=== PATIENT | female | born 1995 | race Caucasian/White ===

== ENCOUNTER 2018-10-02 13:28 | Emergency (ER) | payer OTHER, SELFPAY ==
[2018-10-02 13:54] VITALS: BP 107/65; PULSE 80; RESP 14; TEMP 36.8; O2SAT 100
--- NOTE | 2018-10-02 13:58 | DI.RAD.S_ITS ---
PROCEDURE: XR KNEE LT 3V INDICATIONS: fall, twist and pain in left knee TECHNIQUE: 3 views of the knee were acquired. COMPARISON: None. FINDINGS: Bones: No fractures or dislocations. No suspicious bony lesions. Soft tissues: No joint effusion. No suspicious soft tissue calcifications. IMPRESSION: No acute radiographic findings. If pain persists, consider advanced imaging with CT or MRI. Dictated by: Keesha Laughlin M.D. on 10/02/2018 at 14:44 Approved by: Keesha Laughlin M.D. on 10/02/2018 at 14:44
--- NOTE | 2018-10-02 15:15 | ED.LOWEXIN ---
HPI - Extremity Injury (Lower) <Rivka Rick PA-C - Last Filed: 10/02/18 21:25> General Chief Complaint: Extremity Injury, Lower Stated Complaint: LEFT KNEE INJURY Time Seen by Provider: 10/02/18 14:33 Source: patient Mode of arrival: ambulatory Limitations: no limitations History of Present Illness HPI Narrative: This 23-year-old female states that she was dancing last night when she twisted her knee and fell on it. She is not sure how she landed. She denies any head contusion, LOC, or any other injury. She states that she is able to walk on the knee, but it is painful to walk and it feels a little bit lax. She denies any other complaints today. Denies any possibility of . Related Data Home Medications Medication Instructions Recorded Confirmed No Known Home Medications 10/02/18 10/02/18 Allergies Allergy/AdvReac Type Severity Reaction Status Date / Time Penicillins Allergy Severe Anaphylaxis Verified 10/02/18 13:57 Review of Systems <DORA Nichols Last Filed: 10/02/18 21:25> Review of Systems ROS Unobtainable: All systems reviewed & are unremarkable except as noted in HPI and below Exam <DORA Nichols Last Filed: 10/02/18 21:25> Narrative Exam Narrative: GENERAL APPEARANCE: Patient sitting comfortably, in no distress. LUNGS: Clear to auscultation bilaterally. HEART: Rate and rhythm regular without murmur, normal S1 and S2, no S3 or S4. MUSCULOSKELETAL: Left knee mild effusion, no tenderness to palpation over the soft tissues or joint line. Mildly limited flexion and extension secondary to tenderness. There is no obvious laxity but limited ability to test secondary to tenderness. NEUROVASCULAR: Extremities warm and pink with sensation grossly intact Initial Vital Signs Initial Vital Signs: Vital Signs Temperature 98.3 F 10/02/18 13:54 Pulse Rate 80 10/02/18 13:54 Respiratory Rate 14 10/02/18 13:54 Blood Pressure 107/65 10/02/18 13:54 Pulse Oximetry 100 10/02/18 13:54 <Kwame Yi DO - Last Filed: 10/05/18 07:17> Initial Vital Signs Initial Vital Signs: Vital Signs Temperature 98.3 F 10/02/18 13:54 Pulse Rate 80 10/02/18 13:54 Respiratory Rate 14 10/02/18 13:54 Blood Pressure 107/65 10/02/18 13:54 Pulse Oximetry 100 10/02/18 13:54 Course <Rivka Rick PA-C - Last Filed: 10/02/18 21:25> Orders Ordered: ED Orders 10/02/18 13:58 XR knee LT 3V Stat Vital Signs - 8 hr 10/02/18 13:54 10/02/18 16:06 Temperature 98.3 F Pulse Rate 80 76 Respiratory Rate 14 18 Blood Pressure 107/65 113/74 Pulse Oximetry 100 98 <Kwame Yi DO - Last Filed: 10/05/18 07:17> Orders Ordered: ED Orders 10/02/18 13:58 XR knee LT 3V Stat Vital Signs - 8 hr 10/02/18 13:54 10/02/18 16:06 Temperature 98.3 F Pulse Rate 80 76 Respiratory Rate 14 18 Blood Pressure 107/65 113/74 Pulse Oximetry 100 98 MDM - Extremity Injury (Lower) <DORA Nichols Last Filed: 10/02/18 21:25> Imaging Data knee: Radiologist's impression: [place] [address] XRay Report Signed Patient: KENNY PEREZ#: [id number] : 1995Acct:[id number] Age/Sex: 23 / FDate of Service: 10/02/18 Loc: ED Accession Number: [id number] Procedure: XR knee LT 3V Ordering Provider: Kwame Yi D.O. PROCEDURE: XR KNEE LT 3V INDICATIONS: fall, twist and pain in left knee TECHNIQUE: 3 views of the knee were acquired. COMPARISON: None. FINDINGS: Bones: No fractures or dislocations. No suspicious bony lesions. Soft tissues: No joint effusion. No suspicious soft tissue calcifications. IMPRESSION: No acute radiographic findings. If pain persists, consider advanced imaging with CT or MRI. Dictated by: Keesha Laughlin M.D. on 10/02/2018 at 14:44 Approved by: Keesha Laughlin M.D. on 10/02/2018 at 14:44 Discharge Plan Departure Patient Disposition: Home Clinical Impression: Knee sprain Discharge Date/Time: 10/02/18 16:05 Interventions: ED Discharge Assessment Last Done: 10/02/18 16:06 Instructions: DI for Knee Sprain Activity Restrictions/Additional Instructions: Please wear the knee brace for comfort and stability when you are walking. Take your sagx-dkl-zfbodxq naproxen 2 tabs every 12 hr which is equivalent to a prescription dose to help with pain and inflammation. Gentle walking is okay but avoid uneven surfaces, pivoting, etc. Return if you have acutely worsening symptoms, otherwise follow up with your PCP next week for recheck to determine whether further testing or therapy may be needed. Prescriptions: No Action No Known Home Medications RF: 0 Referrals: [facility] [Provider Group] <Kwame Yi DO - Last Filed: 10/05/18 07:17> [facility] Attestation: I was available for consultation during this patient's emergency department encounter
--- NOTE | 2018-10-02 15:18 | ED_ITS ---
HPI - Extremity Injury (Lower) <Rivka Rick PA-C - Last Filed: 10/02/18 21:25> General Chief Complaint: Extremity Injury, Lower Stated Complaint: LEFT KNEE INJURY Time Seen by Provider: 10/02/18 14:33 Source: patient Mode of arrival: ambulatory Limitations: no limitations History of Present Illness HPI Narrative: This 23-year-old female states that she was dancing last night when she twisted her knee and fell on it. She is not sure how she landed. She denies any head contusion, LOC, or any other injury. She states that she is able to walk on the knee, but it is painful to walk and it feels a little bit lax. She denies any other complaints today. Denies any possibility of . Related Data Home Medications Medication Instructions Recorded Confirmed No Known Home Medications 10/02/18 10/02/18 Allergies Allergy/AdvReac Type Severity Reaction Status Date / Time Penicillins Allergy Severe Anaphylaxis Verified 10/02/18 13:57 Review of Systems <DORA Nichols Last Filed: 10/02/18 21:25> Review of Systems ROS Unobtainable: All systems reviewed & are unremarkable except as noted in HPI and below Exam <DORA Nichols Last Filed: 10/02/18 21:25> Narrative Exam Narrative: GENERAL APPEARANCE: Patient sitting comfortably, in no distress. LUNGS: Clear to auscultation bilaterally. HEART: Rate and rhythm regular without murmur, normal S1 and S2, no S3 or S4. MUSCULOSKELETAL: Left knee mild effusion, no tenderness to palpation over the soft tissues or joint line. Mildly limited flexion and extension secondary to tenderness. There is no obvious laxity but limited ability to test secondary to tenderness. NEUROVASCULAR: Extremities warm and pink with sensation grossly intact Initial Vital Signs Initial Vital Signs: Vital Signs Temperature 98.3 F 10/02/18 13:54 Pulse Rate 80 10/02/18 13:54 Respiratory Rate 14 10/02/18 13:54 Blood Pressure 107/65 10/02/18 13:54 Pulse Oximetry 100 10/02/18 13:54 <Kwame Yi DO - Last Filed: 10/05/18 07:17> Initial Vital Signs Initial Vital Signs: Vital Signs Temperature 98.3 F 10/02/18 13:54 Pulse Rate 80 10/02/18 13:54 Respiratory Rate 14 10/02/18 13:54 Blood Pressure 107/65 10/02/18 13:54 Pulse Oximetry 100 10/02/18 13:54 Course <Rivka Rick PA-C - Last Filed: 10/02/18 21:25> Orders Ordered: ED Orders 10/02/18 13:58 XR knee LT 3V Stat Vital Signs - 8 hr 10/02/18 13:54 10/02/18 16:06 Temperature 98.3 F Pulse Rate 80 76 Respiratory Rate 14 18 Blood Pressure 107/65 113/74 Pulse Oximetry 100 98 <Kwame Yi DO - Last Filed: 10/05/18 07:17> Orders Ordered: ED Orders 10/02/18 13:58 XR knee LT 3V Stat Vital Signs - 8 hr 10/02/18 13:54 10/02/18 16:06 Temperature 98.3 F Pulse Rate 80 76 Respiratory Rate 14 18 Blood Pressure 107/65 113/74 Pulse Oximetry 100 98 MDM - Extremity Injury (Lower) <DORA Nichols Last Filed: 10/02/18 21:25> Imaging Data knee: Radiologist's impression: [place] [address] XRay Report Signed Patient: KENNY PEREZ#: [id number] : 1995Acct:[id number] Age/Sex: 23 / FDate of Service: 10/02/18 Loc: ED Accession Number: [id number] Procedure: XR knee LT 3V Ordering Provider: Kwame Yi D.O. PROCEDURE: XR KNEE LT 3V INDICATIONS: fall, twist and pain in left knee TECHNIQUE: 3 views of the knee were acquired. COMPARISON: None. FINDINGS: Bones: No fractures or dislocations. No suspicious bony lesions. Soft tissues: No joint effusion. No suspicious soft tissue calcifications. IMPRESSION: No acute radiographic findings. If pain persists, consider advanced imaging with CT or MRI. Dictated by: Keesha Laughlin M.D. on 10/02/2018 at 14:44 Approved by: Keesha Laughlin M.D. on 10/02/2018 at 14:44 Discharge Plan Departure Patient Disposition: Home Clinical Impression: Knee sprain Discharge Date/Time: 10/02/18 16:05 Interventions: ED Discharge Assessment Last Done: 10/02/18 16:06 Instructions: DI for Knee Sprain Activity Restrictions/Additional Instructions: Please wear the knee brace for comfort and stability when you are walking. Take your enmd-lst-mduwlww naproxen 2 tabs every 12 hr which is equivalent to a prescription dose to help with pain and inflammation. Gentle walking is okay but avoid uneven surfaces, pivoting, etc. Return if you have acutely worsening symptoms, otherwise follow up with your PCP next week for recheck to determine whether further testing or therapy may be needed. Prescriptions: No Action No Known Home Medications RF: 0 Referrals: [facility] [Provider Group] <Kwame Yi DO - Last Filed: 10/05/18 07:17> [facility] Attestation: I was available for consultation during this patient's emergency department encounter
[2018-10-02 16:06] VITALS: BP 113/74; PULSE 76; RESP 18; O2SAT 98
== END 2018-10-02 16:05 | disposition home or self-care (01) ==
PROVIDERS: Emergency Provider Internal Medicine
DX: S83.92XA Sprain of unspecified site of left knee, initial encounter (principal); W18.30XA Fall on same level, unspecified, initial encounter
CPT/HCPCS: 73562; 99283

== ENCOUNTER → 2019-09-27 10:28 | Outpatient (CLI) | payer OTHER, SELFPAY ==
[2019-09-28 12:44] LABS: Strep Grp B PCR NEG for Grp B Strep
== END ==
PROVIDERS: Visit Provider Obstetrics & Gynecology
DX: Z34.03 Encounter for supervision of normal first pregnancy, third trimester (principal)
CPT/HCPCS: 87653

== ENCOUNTER 2019-10-07 11:41 | Outpatient (CLI) | payer OTHER, SELFPAY ==
--- NOTE | 2019-10-07 | DI.US.S_ITS ---
PROCEDURE: US OB BIOPHYSICAL PROFILE INDICATIONS: DECREASED MOVEMENT OUTSIDE/PRIOR DATING DATA: Last menstrual period (LMP): 01/12/19. LMP-based estimated date of delivery (ROBERT): 10/19/19. TECHNIQUE: Real-time scanning was performed of the fetus for biophysical profile, with image documentation. Color and pulse Doppler interrogation was also performed of the umbilical artery near its insertion into the placenta. COMPARISON: None. FINDINGS: General: A single live intrauterine gestation is present. Presentation: Vertex. Placenta: Placental position is fundal, without previa. Amniotic fluid index: 18.4 cm, normal range is 5-24 cm. heart rate: 136 beats per minute. Maternal cervical canal: Not seen. Estimated gestational age by LMP: 38 weeks 2 days. Biophysical profile: Tone: 2 points. Movement: 2 points. Respiration: 2 points. Largest pocket of fluid: 2 points. (Largest pocket, 6.4 cm) IMPRESSION: Normal biophysical profile, 8/8 points. Dictated by: Mahesh Ball M.D. on 10/07/2019 at 12:16 Approved by: Mahesh Ball M.D. on 10/07/2019 at 12:17
--- NOTE | 2019-10-07 13:21 | P.TNLD_ITS ---
Visit Information Visit Information Date of evaluation: 10/07/19 Primary OB Provider: Kiersten Cox Reason for Evaluation: Yes non-stress test Comments/Additional reasons for admission: This patient is a 24yo @38+5 presenting for evaluation for decreased movement this AM, now feeling normal movement. She denies VB or LOF, reports rare contractions, and reports musculoskeletal low back pain with walking or rolling over in bed. She has had an otherwise uncomplicated , and denies any other complaints obstetrical or otherwise. 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 special praveen needs: No Smoking Status: Former smoker Review of Systems Constitutional Constitutional: Reports system reviewed and no additional complaints, except as documented Gastrointestinal Gastrointestinal: Reports system reviewed and no additional complaints, except as documented Genitourinary Genitourinary: Reports system reviewed and no additional complaints, except as documented Musculoskeletal Musculoskeletal: Reports as per HPI Exam Vital Signs (past 8 hours): 111/68, HR 78 Const General: cooperative, healthy appearing and comfortable GI Palpation: soft and No tender Evaluation Evaluation Baseline heart rate: 115 Variability: Average (6-10) monitor accelerations: Present monitor decelerations: Absent Category of Tracing: I Diagnosis, Plan/Disposition Plan/Disposition Plan: This patient presented for decreased movement which has now resolved, and has had a 10/10 BPP per verbal report from ultrasound staff. She was counselled on precautions for return and management of musculoskeletal pain in , and will keep her scheduled clinic appointment. OB Disposition: home
== END 2019-10-07 13:22 | disposition home or self-care (01) ==
LOC: LABOR 11:51 → OB 10-10 14:25
PROVIDERS: Visit Provider Obstetrics & Gynecology
DX: O36.8130 Decreased fetal movements, third trimester, not applicable or unspecified (principal); Z3A.38 38 weeks gestation of pregnancy
CPT/HCPCS: 59025; 76819; G0378; G0379

== ENCOUNTER 2019-10-19 10:43 | Observation (INO) | payer OTHER, SELFPAY ==
--- NOTE | 2019-10-19 13:20 | P.TNLD_ITS ---
Visit Information Visit Information Date of evaluation: 10/19/19 Primary OB Provider: Kiersten Cox Reason for Evaluation: Yes non-stress test Vital Signs Vital Signs: 115/76, P86, 36.3C PFSH Medical History Healthy female adult (Chronic) Migraines (Chronic ~2011) Vertigo (Inactive) Surgical History No pertinent past surgical history (Chronic) Family History Sister SVT (supraventricular tachycardia) Grandfather Type 2 diabetes mellitus Hypertension Hyperlipidemia Grandfather Lung cancer Father Addiction Mental health problem Grandmother Vertigo Other Family history non-contributory Social History marital status: household members: spouse pets and animals: Yes (X 2 cats and aware) education level: college (some college) 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 Moderate variability with accels, highly reactive, copious movement on prolonged monitoring. Antepartum precautions discussed. OB Disposition: home
== END 2019-10-19 13:30 | disposition home or self-care (01) ==
PROVIDERS: Admitting Provider Obstetrics & Gynecology; Referring Provider Obstetrics & Gynecology; Visit Provider Obstetrics & Gynecology
DX: O48.0 Post-term pregnancy (principal); Z3A.40 40 weeks gestation of pregnancy
CPT/HCPCS: 59025; 59050; G0378; G0379

== ENCOUNTER 2019-10-21 08:45 | Outpatient (CLI) | payer OTHER, SELFPAY ==
--- NOTE | 2019-10-21 13:29 | P.TNLD_ITS ---
Visit Information Visit Information Date of evaluation: 10/21/19 Primary OB Provider: Kiersten Cox Reason for Evaluation: Yes non-stress test Comments/Additional reasons for admission: Patient is a 24yo @40+2 pre senting for postdates testing, with intermittently painful contractions q2, -VB, -LOF, +FM, no other complaints. 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 After discussion, she is concerned about the risk of stillbirth and would like to be induced for postdates. Precautions were discussed, and the patient will return this evening for vaginal cytotec unless she labors spontaneously. OB Disposition: home
--- NOTE | 2019-10-21 18:30 | P.HPOB_ITS ---
OB HPI Date/Time Date of admission: 10/21/19 Date Patient Seen: 10/21/19 Time Patient Seen: 18:32 History of Present Condition Chief complaint: Observation : 1 Para: 0 Estimated Date of Delivery: 10/19/19 Estimated Gestational Age (weeks): 40 Narrative: Opal Hurtado is a 24 year old at 40 weeks 2 days dated by first-trimester ultrasound, presenting for induction of labor for post dates in the setting of latent labor. The patient reports intermittently painful contractions, denies vaginal bleeding or loss of fluid, endorses good movement, denies any other complaints. Patient's was complicated by late transfer of care from the [facility], but has otherwise been uncomplicated. Patient has no contributory medical, surgical, or family history. Patient initially desired tubal ligation, but it was discussed in the setting of the patient's desire for large family, young age, risk of regret, an unfamiliar D with the reality is of adoption IVF that this will not be performed. Indications Indication for induction OB: post dates History of Present care: good care Dating criteria: LMP confirmed by 1st trimester US Ultrasounds: normal 1st trimester US and normal mid trimester US Obstetrical complications: none Medical complications: none Preadmission Labs Blood type: A (-) negative -: Antibody screen: negative, Cystic fibrosis screen: negative, GBS status: negative, HBsAG: negative, HIV: negative and RPR/VDLR: negative -: Chlamydia screen: not detected and Gonorrhea screen: not detected -: Rubella: immune and Varicella: not immune HCAB: negative Integrated screen: Negative Evaluation Evaluation Baseline heart rate: 120 Variability: Average (6-10) monitor accelerations: Present monitor decelerations: Absent Contraction Frequency (minutes): 3 Uterine Contraction Intensity: Mild Category of Tracing: I Comments: 0/50/-1 5 hrs ago PFSH Medical History Healthy female adult (Chronic) Migraines (Chronic ~2011) Vertigo (Inactive) Surgical History No pertinent past surgical history (Chronic) Family History Sister SVT (supraventricular tachycardia) Grandfather Type 2 diabetes mellitus Hypertension Hyperlipidemia Grandfather Lung cancer Father Addiction Mental health problem Grandmother Vertigo Other Family history non-contributory Social History marital status: household members: spouse pets and animals: Yes (X 2 cats and aware) education level: college (some college) 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 special praveen needs: No Smoking Status: Former smoker Meds Home Medications and Allergies Home Medications Medication Instructions Recorded Confirmed Type prenat.vits,carley,hcr-bkxx-wgyut 1 tab PO DAILY 08/30/19 10/19/19 History Allergies Allergy/AdvReac Type Severity Reaction Status Date / Time Penicillins Allergy Severe Anaphylaxis Verified 08/30/19 10:12 Review of Systems Constitutional Constitutional: Reports system reviewed and no additional complaints, except as documented Cardiovascular Cardiovascular: Reports system reviewed; no additional complaints, except as documented Respiratory Respiratory: Reports system reviewed and no additional complaints, except as documented Gastrointestinal Gastrointestinal: Reports as per HPI Genitourinary Genitourinary: Reports as per HPI Musculoskeletal Musculoskeletal: Reports system reviewed; no additional complaints, except as documented Exam Vital Signs (past 8 hours): 112/75, 98 Const General: cooperative, healthy appearing and comfortable Resp Effort & Inspection: normal respiratory effort Auscultation: clear to auscultation bilaterally Cardio Rate: regular rate Rhythm: regular rhythm GI Palpation: soft and No tender External Female Exam: external appearance normal Skin General: no rashes or lesions noted Assessment and Plan Assessment and Plan Assessment and Plan narrative: Patient admitted for induction of labor in the setting of latent labor and postdates. Reassuring status and patient's status on admission. Plan for vaginal Cytotec overnight with Pitocin in the morning reviewed with patient and , all questions answered. Increased risk of with induction of unfavorable cervix reviewed, discussed risks of post dates as well with shared decision-making. - CBC, T&S - monitoring per protocol - 25mcg v cytotec q4 per protocol Time Spent with Patient Total time spent with greater than 50% in coordination of care (as documented) at patient's floor/unit and/or counseling patient:: 15-24 minutes
== END 2019-10-21 11:58 | disposition home or self-care (01) ==
LOC: LABOR 10:13 → OB 12:40
PROVIDERS: Referring Provider Obstetrics & Gynecology; Visit Provider Obstetrics & Gynecology
DX: O48.0 Post-term pregnancy (principal)
CPT/HCPCS: 59025; 76815; G0378; G0379

== ENCOUNTER 2019-10-21 18:27 | Inpatient (IN) | payer OTHER, SELFPAY ==
[2019-10-21 19:14] VITALS: BP 112/75
[2019-10-21 19:27] LABS: Add Manual Diff / Slide Review NO; Basophils Absolute Auto 100 /uL (0-100); Basophils Percent Auto 0.5 % (0-2); Eosinophils Absolute Auto 100 /uL (0-450); Hematocrit 32.1 % (36-46); Hemoglobin 11.1 g/dL (12.0-16.0); Lymphocytes Absolute Auto 2300 /uL (1100-4500); Lymphocytes Percent Auto 22.7 % (25-40); Mean Corpuscular HGB Conc 34.7 % (30-36); Mean Corpuscular Volume 86.2 fL (80-100); Monocytes Absolute Auto 800 /uL (0-900); Monocytes Percent Auto 7.4 % (3-14); Neutrophils Absolute Auto 7100 /uL (1500-7000); Neutrophils Percent Auto 68.4 % (50-75); Platelet Count 226 X10^3/uL (150-400); Red Blood Cell Count 3.72 X10^6/uL (4.0-5.2); Red Cell Distribution Width 12.2 % (11.6-14.8); White Blood Cell Count 10.3 X10^3/uL (4.5-11.0)
[2019-10-21] MEDS: miSOPROStoL 25 MCG TABLET VAG (19:37)
[2019-10-22] MEDS: LACTATED RINGERS 1,000 ML 100 ML IV ×2 (09:13→23:24)
[2019-10-22] MEDS: DINOPROSTONE VAG (CERVIDIL) 10 MG VAG (09:16)
--- NOTE | 2019-10-22 09:22 | PM.OBPNLAB ---
Date/Time Date Patient Seen: 10/22/19 Time Patient Seen: 08:36 Pain Control Pain control: tolerating well Comments: Assumed care from Dr. Cox this morning. Patient received 1 dose of Cytotec overnight and slept for 5 hours intermittently. This morning she feels mild contractions, primarily in her back. She states contractions are stronger than they were yesterday. Reports good movement and denies leaking or bleeding. Pelvic Exam Dilation (cm): 1 Effacement (%): 50 station: -1 Amniotic membrane status: Intact Contractions Contraction pattern: Irregular Contraction intensity: Mild Status status: Category l Heart Rate Baseline: 120 Monitor Accelerations: Present Monitor Decelerations: Absent Monitor Variability: Moderate Assessment and Plan Assessment: induction ongoing Comments: Patient is a 24-year-old at 40 weeks and 3 days gestation here for post-dates induction. She received 1 dose of Cytotec overnight but no further doses due to frequency of contractions (though patient slept through contractions). This morning cervical exam is 1/50/-1 with a Baca score of 6 and infrequent contractions. Will proceed with further cervical ripening today was Cervidil. Explained to patient that Cervidil will be removed after 12 hours or sooner if active labor or rupture of membranes. If not in active labor after 12 hours, will begin Pitocin per protocol.
--- NOTE | 2019-10-22 12:39 | PM.OBPNLAB ---
Date/Time Date Patient Seen: 10/22/19 Time Patient Seen: 12:00 Pain Control Pain control: tolerating well Comments: Patient rates contraction pain as 4/10, increased since this morning but still manageable. Contractions Contraction frequency (min): 4 Contraction pattern: Irregular Contraction intensity: Moderate Status status: Category ll Heart Rate Baseline: 120 Monitor Accelerations: Present Monitor Decelerations: Episodic (Occasional late and early decelerations, nothing recurrent) Monitor Variability: Moderate Assessment and Plan Assessment: induction ongoing Comments: Patient is tolerating labor well. SVE deferred since Cervidil is in place. heart tones overall reassuring. She has had what looked like a couple small late decelerations and some possible early decelerations though nothing recurrent. Variability remains moderate and very good. Patient has been bouncing on the ball so some of this may be artifact from the monitor. Continue Cervidil. Remove with onset of active labor or spontaneous rupture of membranes, otherwise at 9:00 p.m..
--- NOTE | 2019-10-22 19:57 | PM.OBPNLAB ---
Date/Time Date Patient Seen: 10/22/19 Pain Control Pain control: tolerating well Comments: Phoned in to RN. Patient is doing well and reports more pain with some contractions. Pelvic Exam Dilation (cm): 1 Effacement (%): 75 station: 0 Amniotic membrane status: Intact Contractions Contraction frequency (min): 2 Contraction pattern: Regular Contraction intensity: Moderate Status status: Category l Heart Rate Baseline: 120 Monitor Accelerations: Present Monitor Decelerations: Absent Monitor Variability: Moderate Assessment and Plan Assessment: induction ongoing Comments: Remove Cervidil at 9:15 PM. Allow patient to rest or progress spontaneously. Start pitocin at 5 AM.
[2019-10-22] MEDS: fentaNYL 100 MCG/2 ML INJ 50 MCG IV ×3 (20:47→23:15)
[2019-10-23] VITALS (11 sets, daily range): BP systolic 95–128; BP diastolic 60–93; PULSE 69–94; RESP 12–19; TEMP 36.6–38; O2SAT 100
--- NOTE | 2019-10-23 02:37 | PM.OBPNLAB ---
Date/Time Date Patient Seen: 10/23/19 Time Patient Seen: 02:37 Pain Control Pain control: tolerating well and epidural Comments: Comfortable with epidural Pelvic Exam Dilation (cm): 10 Effacement (%): 100 station: +1 Amniotic membrane status: Ruptured (clear) Contractions Contraction frequency (min): 5 Contraction pattern: Regular Status status: Category ll Heart Rate Baseline: 120 Monitor Accelerations: Absent Monitor Decelerations: Early Monitor Variability: Moderate Assessment and Plan Assessment: active labor Comments: Beging pushing
[2019-10-23] MEDS: OXYTOCIN PREMIX 30 UNIT/500 ML PLAST..BAG IV (03:41)
[2019-10-23] MEDS: PIPERACILLIN-TAZO 3.375 GM/50 ML FROZ.PIGGY IV (05:45)
--- NOTE | 2019-10-23 05:53 | SUR.OPER ---
Supine on Padded OR bed, head on pillow, safety belt at thigh, arms secured on padded arm boards at <90 degrees abduction. Bump under right buttock. Legs uncrossed with pillow under knees, gel pad to heels, tape over blanket to lower legs.
--- NOTE | 2019-10-23 06:13 | SUR.OPER ---
FHT 87 TOB 05:32 alive female Cord blood x 2 and placenta given to OB nurse
--- NOTE | 2019-10-23 06:27 | P.OP_ITS ---
Operative Date/Time/Diagnoses Date of procedure: 10/23/19 Time of procedure: 04:30 Pre-op diagnosis: intolerance of labor, failed vacuum delivery attempt Post-op diagnosis: same Procedure & Clinicians Procedure: primary section Same procedure as scheduled: Yes Indications: cat 2 EFM with prolonged decelerations, failed vacuum attempt. Surgeon: Kiersten Cox Battery Inspector: Ritika Rosado Anesthesia Type: Epidural Operative Notes Findings: female fetus in asynclitic TROY presentation, body cord x2 around shoulder and bicep. Prominent sacrum. Apgars 9 and 9, weight 7 lb 3 oz. Othe rwise normal uterus, tubes, ovaries. Closure Type: primary Specimen(s): none sent Estimated Blood Loss (mL): 500 Procedure in detail: EBL: 500ccs Fluids:500ccs UOP: 200ccs Findings: Female infant in cephalic presentation, Apgars 9 and 9, weight 7 lb 3 oz, normal uterus, tubes, ovaries. Prominent sacrum. Procedures: Called to bedside to assess patient during 2nd stage. Category 2 heart rate with prolonged decelerations precipitated by each push, resolution to norm al baseline with moderate variability in between contractions. Discussed with patient and spouse that descent had been achieved to 3+, EFW 7 lb, clinically adequate pelvis. Discussed options and risks and benefits of vacuum delivery versus section, including risk of failed vacuum delivery, risk of damage to scalp, risk of shoulder dystocia, increased risk of perineal laceration with a vacuum delivery. Discussed risks and benefits of section including infection, bleeding, damage to bowel and bladder, risk of subsequent pregnancies. Discussed that should vacuum assisted delivery fail, section would be the safest method of delivery for fetus. Patient and vocalized understanding, opted for attempted vacuum delivery. After clinical an operating room staff were assembled, a kiwi vacuum was applied to the scalp over the sagittal suture approximately 3 cm anterior to the posterior fontanelle. Vacuum was inflated per gas engine operator compressors guidelines, and gentle traction applied during pushing effort. Small descent of vertex with initial pull, subsequent pop-off. Vacuum reapplied, 2nd attempt made during next contraction during maternal pushing effort with minimal continued descent of the vertex. At this point, heart rate had noted to descend into the 70s. Overall clinical picture made clear that emergent delivery was indicated, attempted vacuum delivery was abandoned. The patient was expeditiously taken to the operating room where epidural anesthesia was found to be adequate, having been bolused prior to the vacuum attempt. She was prepped and draped in an emergent fashion in the dorsal supine position using Betadine. A Pfannenstiel skin incision was made with a scalpel and carried through to the underlying layer of fascia. The fascia was incised in the midline and the incision extended bluntly. The inferior aspect of this incision was grasped with George clamps, elevated. and the underlying rectus muscles dissected off bluntly. Attention was then turned to the superior aspect of this incision which, in a similar fashion, was grasped, tented up with the George clamps, and the rectus muscles dissected off bluntly. The rectus muscles were then in the midline, and the peritoneum identified, tented up, and entered bluntly and extended bluntly. The bladder blade was inserted and the vesicaouterine peritoneum identified, grasped with pickups, and entered sharply with the Metzenbaum scissors. This incision was bluntly extended laterally, and the bladder flap created digitally. The bladder blade was then reinserted and the lower uterine segment incised in transverse fashion with the scalpel. The uterine incision was bluntly extended laterally. The bladder blade was removed, and the infant's head delivered atraumatically with a push up from nursing staff. Baby was immediately noted to be crying, and after 45 seconds of delayed cord clamping, the cord was clamped and cut. The nose and mouth were suctioned as needed with a bulb synringe, and the infant was handed off to awaiting pediatricians. Cord gas was attempted to be collected, but could not be obtained by OR staff. The placenta was then removed spontaneously, and the uterus was exteriorized and cleared of all clots and debris. The uterine incision was repaired with 1-0 chromic in a running, locked fashion a 2nd layer of the same suture was used to obtain excellent hemostasis. The uterus was returned to the abdomen, and the gutters were cleared of all clots and debris. The bladder flap was repaired with 3 O Vicryl in a running fashion, the peritoneum was closed with 3-0 Vicryl, and the fascia reapproximated with 0 Vicryl in a running fashion. The subcutaneous layer was placed with 3 0 Vicryl in an interrupted fashion and the skin was closed with 4-0 biosyn in a running fashion. The patient tolerated the procedure well sponge lap and needle counts were correct x2. Due to the patient's penicillin allergy and in preparation firm urgent section, clindamycin and gentamicin had been ordered prior to the procedure and azithromycin ordered verbally just prior to the procedure. Operating room availability of antibiotics were limited per nursing staff, and the patient was administered Zosyn as a substitution during the emergent part of the case prior to delivery. The patient was monitored closely after the operating surgeon was notified, with no signs of allergic reaction or anaphylaxis. The patient was taken to the recovery room in stable condition, where all the above was discussed with the patient and her spouse. All questions were answered. Complications: none Post-operative Condition: stable Disposition: PACU Plan for aftercare: Routine postoperative care
[2019-10-23] MEDS: ONDANSETRON 4 MG/2 ML INJ IV (06:42)
[2019-10-23] MEDS: OXYTOCIN 10 UNIT/ML VIAL 20 UNIT (07:19)
[2019-10-23] MEDS: KETOROLAC 30 MG/ML VIAL IV ×3 (07:41→20:36)
[2019-10-23] MEDS: OXYCODONE IR 5 MG TABLET PO (08:27)
[2019-10-23] MEDS: LACTATED RINGERS 1,000 ML 100 ML IV (08:50)
[2019-10-23] MEDS: OXYCODONE/ACETAMINOPHEN 5/325 TABLET 1 TAB PO ×3 (14:21→23:33)
[2019-10-23] MEDS: ACETAMINOPHEN 325 MG TABLET 650 MG PO (16:24)
[2019-10-24] MEDS: KETOROLAC 30 MG/ML VIAL IV (02:51)
[2019-10-24] MEDS: OXYCODONE/ACETAMINOPHEN 5/325 TABLET 1 TAB PO (03:32)
[2019-10-24 06:28] LABS: Add Manual Diff / Slide Review NO; Basophils Absolute Auto 0 /uL (0-100); Basophils Percent Auto 0.3 % (0-2); Eosinophils Absolute Auto 100 /uL (0-450); Eosinophils Percent Auto 0.7 % (2-4); Hemoglobin 8.5 g/dL (12.0-16.0); Lymphocytes Absolute Auto 2600 /uL (1100-4500); Lymphocytes Percent Auto 21.8 % (25-40); Mean Corpuscular HGB Conc 34.2 % (30-36); Mean Corpuscular Hemoglobin 29.7 PG (26-34); Monocytes Absolute Auto 800 /uL (0-900); Neutrophils Absolute Auto 8300 /uL (1500-7000); Neutrophils Percent Auto 70.2 % (50-75); Platelet Count 160 X10^3/uL (150-400); Red Blood Cell Count 2.87 X10^6/uL (4.0-5.2); Red Cell Distribution Width 12.4 % (11.6-14.8); White Blood Cell Count 11.9 X10^3/uL (4.5-11.0)
[2019-10-24] MEDS: IBUPROFEN 600 MG TABLET PO ×2 (08:38→15:04)
[2019-10-24] MEDS: DOCUSATE 250 MG CAPSULE PO (08:38)
[2019-10-24] MEDS: PRENATAL VIT,CALC/IRON/FOLIC 1 TABLET 1 TAB PO (08:38)
--- NOTE | 2019-10-24 10:23 | P.PNOB_ITS ---
Subjective - OB Subjective Patient comments: no complaints and pain well controlled [place] baby status: doing well and bottle feeding well [place] feeding status: exclusively bottle feeding Narrative: This patient is a 24yo [id number], POD#1 s/p emergency c section after a failed VAVD attempt. The patient reports feeling well this AM, with good pain control, minimal lochia, ambulating, tolerating p.o., voiding, passing flatus. No other complaints. Date Patient Seen: 10/24/19 Time Patient Seen: 10:23 Exam Vital Signs (past 8 hours): 105/65, heart rate 85, temperature 98.6? F Oxygen Delivery Method Room Air Const General: cooperative, healthy appearing and comfortable Resp Effort & Inspection: normal respiratory effort Auscultation: clear to auscultation bilaterally Cardio Rate: regular rate Rhythm: regular rhythm GI Palpation: soft and No tender Other: Incision covered with clean Aquacel, clean dry intact. Fundus firm, well below U. Objective Labs Result Diagrams: 10/24/19 05:58 Labs: Laboratory Results - last 24 hr 10/21/19 10/24/19 10/24/19 18:52 05:58 05:58 WBC 11.9 H RBC 2.87 L Hgb 8.5 L Hct 25.0 L MCV 87.0 MCH 29.7 MCHC 34.2 RDW 12.4 Plt Count 160 Neut % (Auto) 70.2 Lymph % (Auto) 21.8 L [place] % (Auto) 7.0 Eos % (Auto) 0.7 L Baso % (Auto) 0.3 Neut # (Auto) 8300 H Lymph # (Auto) 2600 [place] # (Auto) 800 Eos # (Auto) 100 Baso # (Auto) 0 Blood Type A Negative Antibody Screen Negative Maternal Bleed Cancelled Negative Assessment & Plan Plan day: 1 plan OB: routine postop care Comments: This patient is meeting postoperative goals, recovering well in appropriate for discharge. precautions and plan of care were discussed, patient courage to call or come in with any questions or new sympto ms. Time Spent With Patient Time: Total time spent is greater than 50% in coordination of care (as documented) at patient's floor/unit and/or counseling patient: Time with patient: 15-24 minutes
[2019-10-24] MEDS: RHO(D) IMMUNE GLOBULIN 1,500 UNIT SYRINGE 1500 UNIT IM (11:27)
[2019-10-24] MEDS: ACETAMINOPHEN 325 MG TABLET 650 MG PO (11:42)
--- NOTE | 2019-10-24 12:18 | PM.OBDS.1 ---
Discharge Providers Provider Date of admission: 10/21/19 18:27 Discharge Date: 10/24/19 Consults: 10/23/19 07:20 Consult to Typing Checker Routine Comment: Discharge provider: Kiersten Cox MD Summary Hospital Course Date Patient Seen: 10/24/19 Time Patient Seen: 11:30 Procedures: Primary section Hospital Course: This patient is a 24-year-old G1 now P1, who presented for postdates testing on Thursday, 10 21 and was found to be having variable decelerations. She was induced with vaginal Cytotec and vaginal Cervidil, then went into active labor. She progressed to fully dilated, and had 1 hour 2nd stage with a category 2 tracing significant for recurrent late and prolonged decelerations with return to normal baseline and moderate variability in between. The patient pushed until the vertex was at +3 station, was counseled for trial of vacuum assisted vaginal delivery with section if this fails. Vacuum assisted delivery was not successful, and the patient had a prolonged bradycardia in the 70s which required emergent delivery. This was uncomplicated, and she was delivered of a healthy baby girl from the TROY presentation, with a double body cord. Apgars were 9 and 9, weight was 7 lb 3 oz. The recovery of mom and baby were uneventful, and she was discharged late on postoperative day 1. Peripartum Data Delivery Method: Section complications: none [place]: Gender: Female Disposition of : home Discharge Diagnosis (1) delivery delivered: Start Date: 10/23/19 Start Time: 05:30 Status: Acute Status at Discharge Cognitive/behavioral status at discharge: oriented Functional status at discharge: independent ambulation Overall status at discharge: patient is progressing back to baseline Time Spent with Patient Time attestation: Total time spent providing and/or coordinating discharge services: Time spent: Greater than 30 minutes Objective Labs Result Diagrams: 10/24/19 05:58 Labs: Laboratory Results - last 24 hr 10/21/19 10/24/19 10/24/19 18:52 05:58 05:58 WBC 11.9 H RBC 2.87 L Hgb 8.5 L Hct 25.0 L MCV 87.0 MCH 29.7 MCHC 34.2 RDW 12.4 Plt Count 160 Neut % (Auto) 70.2 Lymph % (Auto) 21.8 L [place] % (Auto) 7.0 Eos % (Auto) 0.7 L Baso % (Auto) 0.3 Neut # (Auto) 8300 H Lymph # (Auto) 2600 [place] # (Auto) 800 Eos # (Auto) 100 Baso # (Auto) 0 Maternal Bleed Cancelled Negative Exam Vital Signs (past 8 hours): Oxygen Delivery Method Room Air Discharge Plan Discharge Plan Patient Disposition: Home Discharge orders & Medications Prescriptions: New oxycodone 5 mg tablet 5 mg PO Q8H PRN (Reason: pain) Qty: 14 RF: 0 Continued prenat.vits,carley,[id number] Tablet 1 tab PO DAILY RF: 0 Follow up/Referrals: Kiersten Cox MD [Physician] - 1 Week (incision check on @12pm w/ Dr. Cox) Diet/Activity/Treatments Diet: Regular Activity: No lifting more than 10 lbs for 6 weeks. Nothing in the vagina for 6 weeks. If you have increasing bleeding, fevers, chills, nausea, headaches, visual changes, or any other symptoms or concerns, call or come to the ED. Skin/Wound/Dressing Care Report to your healthcare provider any signs of infection, such as:: chills, fever, night sweats, increased pain, unusual drainage and unusual redness Visit Report/Discharge Packet Instructions: DI for Stand Alone Forms: Discharge: Care
== END 2019-10-24 15:30 | disposition home or self-care (01) | DRG 788 ==
PROVIDERS: Family Medicine; Admitting Provider Obstetrics & Gynecology; Referring Provider Obstetrics & Gynecology; Visit Provider Obstetrics & Gynecology
PROC: 10D00Z1 Extraction of Products of Conception, Low, Open Approach (ICD-10-PCS; CPT 59514; principal; 2019-10-23 05:15)
DX: O48.0 Post-term pregnancy (principal); Z3A.40 40 weeks gestation of pregnancy; Z37.0 Single live birth; O76 Abnormality in fetal heart rate and rhythm complicating labor and delivery; O69.82X0 Labor and delivery complicated by other cord entanglement, without compression, not applicable or unspecified; O66.5 Attempted application of vacuum extractor and forceps
CPT/HCPCS: 01967; 01968; 36415; 59025; 59050; 59200; 59514; 59515; 76815; 85025; 85461; 86850; 86900; 86901; G0379; J1885; J2405; J2543; J2590; J2790; J3010